=== PATIENT | male | born 2000 | race Caucasian/White ===

== ENCOUNTER 2018-06-06 20:30 | Emergency (ER) | payer OTHER ==
[~2018-06-06] VITALS: Ht 182.9 cm; Wt 94.8 kg
[~2018-06-06 20:30] MED LIST: BACTRIM DS TAB1 EACH PO; CITRATE OF MAG296 ML PO; KEFLEX500 MG PO; NOHOMEMEDICATIONS
[2018-06-06 21:13] LABS: ABSOLUTE EOSINOPHILS 0.1 thou/uL (0.0-0.7); ABSOLUTE LYMPHOCYTES 2.2 thou/uL (0.8-5.3); ABSOLUTE MONOCYTES 0.6 thou/uL (0.0-1.2); ABSOLUTE NEUTROPHILS 5.6 thou/uL (1.6-8.1); BASOPHILS 0.6 %; EOSINOPHILS 1.2 %; HEMOGLOBIN 16.6 gm/dL (14.0-18.0); LYMPHOCYTES 25.8 %; MCH 29.3 pg (26.0-34.0); MCHC 35.4 g/dL (28.0-37.0); MCV 82.7 fL (80.0-100.0); MONOCYTES 6.8 %; NUCLEATED RBCS 0 /100WBC; PLATELET COUNT* 265 thou/uL (150-400); POLYS 65.6 %; RBC 5.68 mil/uL (4.50-6.00); RDW-CV 13.1 % (10.5-14.5); WBC 8.6 thou/uL (4.0-11.0)
[2018-06-06 21:15] LABS: ANION GAP 11 mmol/L (7-16); BUN 14 mg/dL (7-18); CALCIUM 9.7 mg/dL (8.5-10.1); CHLORIDE 100 mmol/L (98-107); CO2 29 mmol/L (21-32); CREATININE 1.1 mg/dL (0.6-1.3); GLUCOSE 93 mg/dL (70-99); POTASSIUM 3.7 mmol/L (3.5-5.1); SODIUM 140 mmol/L (136-145)
[2018-06-06 21:22] LABS: ALBUMIN 4.5 g/dL (3.4-5.0); ALKALINE PHOSPHATASE 67 U/L (46-116); SGOT 15 U/L (15-37); SGPT 24 U/L (30-65); TOTAL BILIRUBIN 0.5 mg/dL (<0.1-1.0); TROPONIN-I LEVEL <0.06 ng/mL (<0.06)
[2018-06-06 21:44] VITALS: BP 108/77
--- NOTE | 2018-06-07 13:00 | EKG ---
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 CORTES : 2000 Requested By: Tram Allison Order Number: [id number] MD: Sterling Tavarez Measurements Intervals [place] Rate: 78 P: 44 NV: 170 QRS: 69 QRSD: 90 T: 68 QT: 342 QTc: 390 Interpretive Statements Sinus rhythm RSR' in V1 or V2, right VCD or RVH Baseline wander in lead(s) V4,V5,V6 No previous ECG available for comparison Electronically Signed On 06-07-2018 13:00:02 [employer] by Sterling Tavarez [email or web address] <ELECTRONICALLY SIGNED> By: Sterling Tavarez MD, FACC 06/07/18 1300 34 34 Sterling Tavarez MD, [facility] /EPI
== END 2018-06-06 21:48 | disposition home or self-care (01) ==
LOC: M.ERS 20:30
PROVIDERS: Physician Assistant
DX: R07.89 Other chest pain (principal); Z88.0 Allergy status to penicillin